=== PATIENT | male | born 1975 | race Two or more races ===

== ENCOUNTER → 2018-02-12 | Outpatient (CLI) | payer OTHER ==
[~2018-02-12] MED LIST: AZIT500T2 PO; CITA20TA6 PO; LISI-170 PO; METF10002 PO; PENI250T PO; [UNRECOGNIZED DRUG - REMARK]
== END | disposition home or self-care (01) ==
LOC: LAB 12:05
PROVIDERS: ATTEND Family Medicine
DX: Z02.9 Encounter for administrative examinations, unspecified (principal)

== ENCOUNTER 2019-06-19 14:47 | Emergency (ER) | payer OTHER ==
[~2019-06-19] VITALS: Ht 185.4 cm; Wt 125.7 kg
--- NOTE | 2019-06-19 15:03 | NUR ---
ASSUMED CARE OF PATIENT IN ROOM 3. DR. FLOOD AT BEDSIDE. PT IN NO DISTRESS.
--- NOTE | 2019-06-19 15:11 | NUR ---
PT STATES HAS NO CHEST PAIN OR MEDICAL COMPLAINTS EXCEPT A YEAST INFECTION IN HIS GROIN. PT STATES THAT HE CAME HERE TO GET HIS HEART AND KIDNEYS "CHECKED OUT". PT ALERT AND ORIENTED AND IN NO ACUTE DISTRESS. CONNECTED PATIENT TO CONTINUOUS CARDIAC AND SPO2 MONITORS. PT AMBULATORY AND IS STEADY ON HIS FEET. URINE PROVIDED AFTER EDUCATION ON CLEAN CATCH PROCESS. PT TO XRAY AT THIS TIME.
--- NOTE | 2019-06-19 15:23 | NUR ---
URINE COLLECTED AND WALKED TO LAB.
[2019-06-19 15:26] VITALS: BP 139/80
[2019-06-19] MEDS ORDERED: HYDR-826 PO (15:28)
[2019-06-19 15:33] LABS: BASOPHILS # (AUTO) 0.02 x10^3/uL (0-0.1); BASOPHILS % (AUTO) 0 % (0-1); EOSINOPHILS # (AUTO) 0.01 x10^3/uL (0-0.4); EOSINOPHILS % (AUTO) 0 % (1-7); LYMPHOCYTES # (AUTO) 0.76 x10^3/uL (1-3.4); LYMPHOCYTES % (AUTO) 11 % (22-44); MD NO; MEAN CORPUSCULAR HEMOGLOBIN 30.8 pg (27.5-34.5); MEAN CORPUSCULAR HGB CONC 34.4 g/dL (33.2-36.2); MEAN CORPUSCULAR VOLUME 89.4 fL (81-97); MEAN PLATELET VOLUME 10.2 fL (7.4-10.4); MONOCYTES # (AUTO) 0.39 x10^3/uL (0.2-0.8); MONOCYTES % (AUTO) 5 % (2-9); NEUTROPHILS # (AUTO) 6.04 x10^3/uL (1.8-6.8); NEUTROPHILS % (AUTO) 84 % (42-75); PLATELET COUNT 186 x10^3/uL (130-400); RED BLOOD COUNT 5.05 x10^6/uL (4.38-5.82)
[2019-06-19 15:39] LABS: ALANINE AMINOTRANSFERASE 34 U/L (12-78); ALBUMIN 3.2 g/dL (3.4-5.0); ANION GAP 9 mmol/L (5-15); CALCIUM 8.4 mg/dL (8.5-10.1); CHLORIDE 96 mmol/L (98-107); CREATININE 1.26 mg/dL (0.7-1.3)
[2019-06-19 15:42] LABS: ALKALINE PHOSPHATASE 122 U/L (45-117); BILIRUBIN,TOTAL 0.7 mg/dL (0.2-1.0); TOTAL PROTEIN 7.6 g/dL (6.4-8.2)
[2019-06-19 15:49] LABS: MICROSCOPIC INDICATED
[2019-06-19 17:02] LABS: CULTURE INDICATED? NO
== END 2019-06-19 17:08 | disposition home or self-care (01) ==
LOC: ED 15:42
DX: E11.65 Type 2 diabetes mellitus with hyperglycemia (principal); B37.9 Candidiasis, unspecified; R07.89 Other chest pain; I10 Essential (primary) hypertension; I25.2 Old myocardial infarction
CPT/HCPCS: 36415; 71046; 80053; 81001; 83690; 85025; 93005; 99285

== ENCOUNTER 2020-01-22 10:37 | Emergency (ER) | payer OTHER ==
[~2020-01-22] VITALS: Ht 185.4 cm; Wt 148.0 kg
[~2020-01-22 10:37] MED LIST changes: +HYDR-826 PO
[2020-01-22 10:41] VITALS: BP 137/83
--- NOTE | 2020-01-22 10:51 | NUR ---
EDMD SAHM AT BEDSIDE FOR INITIAL ASSESSMENT.
[2020-01-22] MEDS ORDERED: FLUCONAZOLE 100 MG TABLET PO ONE (11:00)
[2020-01-22] MEDS ORDERED: FLUCONAZOLE 100 MG TABLET ONE (11:37)
--- NOTE | 2020-01-22 11:56 | NUR ---
pt medicated per emar, tolerated well. pt is a&o, resps even and unlabored. pt given dc instructions, ambulatory to dc desk with steady gait.
== END 2020-01-22 11:57 | disposition home or self-care (01) ==
LOC: ED 11:35
DX: B37.2 Candidiasis of skin and nail (principal); Z11.59 Encounter for screening for other viral diseases; E11.65 Type 2 diabetes mellitus with hyperglycemia; I10 Essential (primary) hypertension
CPT/HCPCS: 36415; 87635; 99283

== ENCOUNTER 2020-06-28 16:58 | Emergency (ER) | payer OTHER ==
[~2020-06-28] VITALS: Ht 185.4 cm; Wt 147.0 kg
--- NOTE | 2020-06-28 18:20 | NUR ---
L THUMB SOAKING IN WARM WATER WITH BETADINE PER ERP.
[2020-06-28] MEDS ORDERED: NEOSPORIN OINT. PKT 1 PACKET ONE (18:56)
[2020-06-28 18:59] VITALS: BP 144/66
--- NOTE | 2020-06-28 19:01 | NUR ---
L THUMB LANCED BY ER PA. NO ACTIVE BLEEDING, PT TOLERATED WELL. ABX OINTMENT APPLIED, COVERED WITH BAND-AID. D/C INSTRUCTIONS, MEDS & F/U APPT RV'WD WITH PT. RX GIVEN X1. INSTRUCTED PT TO RETURN FOR ANY S/S OF INFECTION. PT AMBULATED OUT OF ED WITHOUT DIFFICULTY.
== END 2020-06-28 19:00 | disposition home or self-care (01) ==
LOC: ED 17:57
DX: L03.012 Cellulitis of left finger (principal); E11.65 Type 2 diabetes mellitus with hyperglycemia; I10 Essential (primary) hypertension
CPT/HCPCS: 10060; 82962; 99283